=== PATIENT | male | born 1985 | race Caucasian/White ===

== ENCOUNTER 2016-08-04 05:54 | Emergency (ER) | payer BC, OTHER ==
[2016-08-04] MEDS ORDERED: DEXAMETHASONE SOD PHOS INJ 10 MG/1 ML VIAL IM ONE (06:28)
[2016-08-04] MEDS ORDERED: AMOXICILLIN TRIHYDRATE 500 MG CAPSULE PO ONE (06:28)
--- NOTE | 2016-08-04 06:29 | ER Document Report ---
ED General - General Chief Complaint: Sore Throat Stated Complaint: SORE THROAT Mode of Arrival: Ambulatory Information source: Patient Notes: 30-year-old male presents with complaints of tonsillar edema or sores throat fevers body aches of one-week duration. Patient noted to have exudates by urgent care tested negative for strep was given azithromycin and notes no improvement of symptoms TRAVEL OUTSIDE OF THE [place] IN LAST 30 DAYS: No - HPI Onset: Last week Onset/Duration: Persistent Quality of pain: Achy Severity: Mild Pain Level: 1 Associated symptoms: Body/muscle aches, Fever, Sore throat Exacerbated by: Denies Relieved by: Denies Similar symptoms previously: Yes Recently seen / treated by doctor: Yes - Related Data Allergies/Adverse Reactions: Cephalosporins Allergy (Verified 10/28/14 11:27) Penicillins Allergy (Verified 10/28/14 11:27) Past Medical History - Social History Smoking Status: Never Smoker Cigarette use (# per day): No Chew tobacco use (# tins/day): No Smoking Education Provided: No Frequency of alcohol use: Rare Drug Abuse: None Family History: None Patient has suicidal ideation: No Patient has homicidal ideation: No Renal/ Medical History: Denies: Hx Peritoneal Dialysis Past Surgical History: Reports: Hx Appendectomy - Immunizations Hx Diphtheria, Pertussis, Tetanus Vaccination: Yes Review of Systems - Review of Systems Notes: REVIEW OF SYSTEMS: CONSTITUTIONAL : Admits to fevers EENT: Admits to sore throat CARDIOVASCULAR: Denies chest pain. Denies palpitations or racing or irregular heart beat. Denies ankle edema. RESPIRATORY: Denies cough, cold, or chest congestion. Denies shortness of breath, difficulty breathing, or wheezing. GASTROINTESTINAL: Denies abdominal pain or distention. Denies nausea, vomiting , or diarrhea. Denies blood in vomitus, stools, or per rectum. Denies black, tarry stools. Denies constipation. GENITOURINARY: Denies difficulty urinating, painful urination, burning, frequency, blood in urine, or discharge. MUSCULOSKELETAL admits to body aches SKIN: Denies rash, lesions or sores. HEMATOLOGIC : Denies easy bruising or bleeding. LYMPHATIC: Denies swollen, enlarged glands. NEUROLOGICAL: Denies confusion or altered mental status. Denies passing out or loss of consciousness. Denies dizziness or lightheadedness. Denies headache. Denies weakness or paralysis or loss of use of either side. Denies problems with gait or speech. Denies sensory loss, numbness, or tingling. Denies seizures. PSYCHIATRIC: Denies anxiety or stress. Denies depression, suicidal ideation, or homicidal ideation. ALL OTHER SYSTEMS REVIEWED AND NEGATIVE. Dictation was performed using [employer] voice recognition software PHYSICAL EXAMINATION: GENERAL: Well-appearing, well-nourished and in no acute distress. HEAD: Atraumatic, normocephalic. EYES: Pupils equal round and reactive to light, extraocular movements intact, sclera anicteric, conjunctiva are normal. ENT: Bilateral tonsillar edema +2 with exudates uvula midline airway patent NECK: Normal range of motion, supple without lymphadenopathy LUNGS: Breath sounds clear to auscultation bilaterally and equal. No wheezes rales or rhonchi. HEART: Tachycardic on arrival ABDOMEN: Soft, nontender, nondistended abdomen. No guarding, no rebound. No masses appreciated. Musculoskeletal: Normal range of motion, no pitting or edema. No cyanosis. NEUROLOGICAL: Cranial nerves grossly intact. Normal speech, normal gait. Normal sensory, motor exams PSYCH: Normal mood, normal affect. SKIN: Warm, Dry, normal turgor, no rashes or lesions noted. Physical Exam - Vital signs Vitals: Temp Pulse Resp BP Pulse Ox 98.9 F 120 H 17 137/83 H 96 08/04/16 05:58 08/04/16 05:58 08/04/16 05:58 08/04/16 05:58 08/04/16 05:58 Course - Re-evaluation Re-evalutation: 08/04/16 06:28 Bilateral pustular exudates noted with edema +2, patient is already on azithromycin which has not improved symptoms, I will do to try amoxicillin, patient is agreeable to this however I will give first dose here since he has had hives with penicillin when he was a child 08/04/16 06:49 08/04/16 07:21 Patient strep test was negative I expect him specificity and sensitivity of this test, given that he was exudates I will treat him again as strep, he has had mono in the past, has no one-sided enlargement. Therefore I believe the patient is stable for discharge. Patient had no allergic reaction to amoxicillin and will be taken off his allergy list After performing a Medical Screening Examination, I estimate there is LOW risk for ACUTE CORONARY SYNDROME, RESPIRATORY FAILURE, SEPSIS OR MENINGITIS, thus I consider the discharge disposition reasonable. The patient and I have discussed the diagnosis and risks, and we agree with discharging home with close follow- up. We also discussed returning to the Emergency Department immediately if new or worsening symptoms occur. We have discussed the symptoms which are most concerning (e.g., changing or worsening pain, trouble swallowing or breathing, neck stiffness, fever) that necessitate immediate return. - Vital Signs Vital signs: Temp Pulse Resp BP Pulse Ox 98.9 F 120 H 17 137/83 H 96 08/04/16 05:58 08/04/16 05:58 08/04/16 05:58 08/04/16 05:58 08/04/16 05:58 Discharge - Discharge Clinical Impression: Exudative pharyngitis, Body aches Condition: Stable Disposition: HOME, SELF-CARE Instructions: Sore Throat ([facility]) Additional Instructions: Follow up with your physician tomorrow for further care or return to the ED IMMEDIATELY if symptoms worsen or new concerns occur Prescriptions: Amoxicillin 500 mg PO BID #20 capsule Prednisone [Deltasone 20 mg Tablet] 3 tab PO DAILY 5 Days Forms: Return to Work
[2016-08-04 07:43] VITALS: BP 141/83
[2016-08-04] MEDS ORDERED: ACETAMINOPHEN 325 MG TABLET PO ONE ×2 (07:43→07:46)
== END 2016-08-04 07:48 | disposition home or self-care (01) ==
LOC: ER 05:54
DX: J02.9 Acute pharyngitis, unspecified (principal); M79.1 Myalgia; R50.9 Fever, unspecified; R00.0 Tachycardia, unspecified; Z88.1 Allergy status to other antibiotic agents
CPT/HCPCS: 99283; 96372; 87070; 87880; 87077; J1100

== ENCOUNTER 2018-03-19 19:23 | Emergency (ER) | payer OTHER ==
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
[2018-03-19] MEDS ORDERED: ONDANSETRON 4 MG TAB.RAPDIS PO ONE (20:12)
[2018-03-19] MEDS ORDERED: ACETAMINOPHEN 325 MG TABLET PO ONE (20:12)
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
[2018-03-19 23:37] VITALS: BP 130/80
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
== END 2018-03-19 23:34 | disposition home or self-care (01) ==
LOC: ER 19:23
DX: S06.0X0A Concussion without loss of consciousness, initial encounter (principal); S00.03XA Contusion of scalp, initial encounter; M54.6 Pain in thoracic spine; R51 Headache; V69.00XA Driver of heavy transport vehicle injured in collision with unspecified motor vehicles in nontraffic accident, initial encounter; Z88.1 Allergy status to other antibiotic agents; Z88.0 Allergy status to penicillin
CPT/HCPCS: 99284; 71046; 76705; 70450; 72125; S0119

== ENCOUNTER 2019-09-17 19:04 | Emergency (ER) | payer OTHER ==
[2019-09-17 19:37] LABS: ABSOLUTE BASOPHILS # (AUTO) 0.1 10^3/uL (0.0-0.2); ABSOLUTE EOSINOPHILS # (AUTO) 0.2 10^3/uL (0.0-0.6); ABSOLUTE LYMPHOCYTES (AUTO) 2.8 10^3/uL (0.5-4.7); ABSOLUTE MONOCYTES (AUTO) 0.7 10^3/uL (0.1-1.4); ABSOLUTE NEUT (AUTO) 3.1 10^3/uL (1.7-8.2); BASOPHILS % (AUTO) 0.9 % (0-2); HEMATOCRIT 52.7 % (37.9-51.0); HEMOGLOBIN 18.5 g/dL (13.5-17.0); LYMPHOCYTES % (AUTO) 40.8 % (13-45); MEAN CORPUSCULAR HEMOGLOBIN 32.5 pg (27.0-33.4); MEAN CORPUSCULAR HGB CONC 35.1 g/dL (32.0-36.0); MEAN CORPUSCULAR VOLUME 93 fl (80-97); MONOCYTES % (AUTO) 9.9 % (3-13); PLATELET COUNT 291 10^3/uL (150-450); RED CELL DISTRIBUTION WIDTH 14.1 % (11.5-14.0); SEGMENTED NEUTROPHILS % (AUTO) 45.4 % (42-78); TOTAL CELLS COUNTED % (AUTO) 100 %; WHITE BLOOD COUNT 6.8 10^3/uL (4.0-10.5)
--- NOTE | 2019-09-17 19:40 | ER Document Report ---
ED General - General Chief Complaint: Arm Problem Stated Complaint: ARM SWELLING Time Seen by Provider: 09/17/19 19:13 Primary Care Provider: BERE MENDOZA MD [Primary Care Provider] - Follow up as needed Mode of Arrival: Ambulatory Information source: Patient Notes: 33-year-old male arrives by POV with chief complaint of acute onset of right forearm pain after his arrived home around 1730. Patient reports he was working out with his triceps and back muscles around 8:00 to 9:00 this morning. He was not doing any curls are trying to increase forearm strength this morning. He has been working out for least 9 years now without any similar symptoms of hematomas or muscular tears. He was sitting in a chair at the time when this occurred. He began to notice swelling in his wrist area to his flexor surface of his right volar forearm around 1730 Patient reports his maternal grandmother used to have DVTs in bilateral legs. 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 He has been seeing his personal doctor over the last year with decreased usage of testosterone; plus he has been vaping for 1 year TRAVEL OUTSIDE OF THE [place] IN LAST 30 DAYS: No - Related Data Allergies/Adverse Reactions: Cephalosporins Allergy (Verified 10/28/14 11:27) Penicillins Allergy (Verified 10/28/14 11:27) Past Medical History - General Information source: Patient - Social History Smoking Status: Never Smoker Cigarette use (# per day): No Chew tobacco use (# tins/day): No Smoking Education Provided: No Frequency of alcohol use: None Drug Abuse: None Lives with: Family Family History: None, Reviewed & Not Pertinent Patient has suicidal ideation: No Patient has homicidal ideation: No Renal/ Medical History: Denies: Hx Peritoneal Dialysis Past Surgical History: Reports: Hx Appendectomy - Immunizations Hx Diphtheria, Pertussis, Tetanus Vaccination: Yes Review of Systems - Review of Systems Constitutional: No symptoms reported EENT: No symptoms reported Cardiovascular: No symptoms reported Respiratory: No symptoms reported Gastrointestinal: No symptoms reported Genitourinary: No symptoms reported Male Genitourinary: No symptoms reported Musculoskeletal: See HPI, Joint swelling, Muscle stiffness, Other - Swelling of right forearm in appearance venous in nature Skin: No symptoms reported Hematologic/Lymphatic: No symptoms reported Neurological/Psychological: No symptoms reported Physical Exam - Vital signs Vitals: Temp Pulse Resp BP Pulse Ox 97.4 F 110 H 20 122/82 97 09/17/19 19:09 09/17/19 19:09 09/17/19 19:09 09/17/19 19:09 09/17/19 19:09 Interpretation: Tachycardic - HEENT Head: Normocephalic Eyes: Normal Conjunctiva: Normal Cornea: Normal Extraocular movements intact: Yes Eyelashes: Normal Pupils: PERRL Sinus: Normal Nasal: Normal Mouth/Lips: Normal Pharynx: Normal Neck: Normal - Respiratory Respiratory status: No respiratory distress Chest status: Nontender Breath sounds: Normal Chest palpation: Normal - Cardiovascular Rhythm: Tachycardia Heart sounds: Normal auscultation Murmur: No Friction rub: No Noe's crunch: No - Abdominal Inspection: Normal Distension: No distension Bowel sounds: Normal Tenderness: Nontender Organomegaly: No organomegaly - Back Back: Normal - Extremities General upper extremity: Tender, Edema, Other - Right forearm from elbow to wrist with volar edema hematoma General lower extremity: Normal inspection - Neurological Neuro grossly intact: Yes Cognition: Normal Orientation: AAOx4 [place] Coma Scale Eye Opening: Spontaneous [place] Coma Scale Verbal: Oriented [place] Coma Scale Motor: Obeys Commands - To be [place] Coma Scale Total: 15 Speech: Normal Cranial nerves: Normal Cerebellar coordination: Normal Motor strength normal: LUE, RUE, LLE, RLE - Psychological Associated symptoms: Normal affect - Skin Skin Temperature: Warm Skin Moisture: Dry Course - Vital Signs Vital signs: Temp Pulse Resp BP Pulse Ox 97.4 F 110 H 20 122/82 97 09/17/19 19:09 09/17/19 19:09 09/17/19 19:09 09/17/19 19:09 09/17/19 19:09 - Laboratory Result Diagrams: 09/17/19 19:22 09/17/19 19:22 Laboratory results interpreted by me: 09/17/19 09/17/19 19:22 19:22 RBC 5.70 H Hgb 18.5 H Hct 52.7 H RDW 14.1 H Creatine Kinase 1104 H Critical Care Note - Critical Care Note Total time excluding time spent on procedures (mins): 90 Comments: Ultrasound of right upper extremity was negative for clots and I suspect this patient has a seroma from his exercise routine of triceps and back today at the gym. He has large biceps that may be constrictive causing a similar symptom. He has positive CPK and this may be guest service representative of a compartment like syndrome. I discussed this case with Dr. Quintana and he will see this patient in his office. Discharge - Discharge Clinical Impression: Elevated CPK, Spontaneous hematoma of forearm, Compartment syndrome of forearm, Tachycardia Condition: Good Disposition: HOME, SELF-CARE Additional Instructions: Call Dr. Quintana cardiac care unit nurse in the morning for appointment he may be able to see you tomorrow. Avoid working out tomorrow and try to keep right arm elevated until seen by Dr. Quintana; return to ER as needed; avoid nonsteroidals for this time. Or any aspirin for this time. Referrals: BERE MENDOZA MD [Primary Care Provider] - Follow up as needed
[2019-09-17 20:02] LABS: ALBUMIN 4.5 g/dL (3.5-5.0); ALKALINE PHOSPHATASE 48 U/L (38-126); ANION GAP 11 (5-19); ASPARTATE AMINO TRANSFERASE 51 U/L (17-59); BILIRUBIN,DIRECT 0.3 mg/dL (0.0-0.4); BILIRUBIN,TOTAL 0.5 mg/dL (0.2-1.3); BLOOD UREA NITROGEN 11 mg/dL (7-20); CALCIUM 9.3 mg/dL (8.4-10.2); CARBON DIOXIDE 25 mmol/L (22-30); CHLORIDE 105 mmol/L (98-107); CREATINE KINASE 1104 U/L (55-170); GLUCOSE 77 mg/dL (75-110); POTASSIUM 4.6 mmol/L (3.6-5.0); TOTAL PROTEIN 7.8 g/dL (6.3-8.2)
[2019-09-17] MEDS ORDERED: DEXAMETHASONE SOD PHOS INJ 10 MG/1 ML VIAL IV ONE (21:15)
--- NOTE | 2019-09-17 21:49 | RADIOLOGY REPORT (SQ) ---
US UPPER EXTREMITY VEINS EXAM DATE: 09/17/2019 7:31 PM CDT HISTORY: Arm pain and swelling. COMPARISON: None. TECHNIQUE: Grayscale, color Doppler, and spectral Doppler images of the right upper extremity were performed. FINDINGS: The internal jugular, subclavian, axillary, brachial, basilic, and cephalic veins are patent and compressible. Normal color Doppler blood flow and augmentation in the aforementioned veins. The distal veins are also patent. There is diffuse subcutaneous edema with a prominent 1.7 x 0.4 cm lymph node in the distal forearm. IMPRESSION: No evidence of deep venous thrombosis in the right upper extremity.
[2019-09-17 21:55] VITALS: BP 141/76
--- NOTE | 2019-09-18 08:34 | EKG REPORT ---
SEVERITY:- ABNORMAL ECG - SINUS TACHYCARDIA PROBABLE LEFT VENTRICULAR HYPERTROPHY BORDERLINE PROLONGED QT INTERVAL : Confirmed by: Ru Brown MD 18-Sep-2019 08:34:03
== END 2019-09-17 21:55 | disposition home or self-care (01) ==
LOC: ER 19:04
DX: T79.A11A Traumatic compartment syndrome of right upper extremity, initial encounter (principal); X58.XXXA Exposure to other specified factors, initial encounter; M79.81 Nontraumatic hematoma of soft tissue; R00.0 Tachycardia, unspecified; R79.89 Other specified abnormal findings of blood chemistry; F17.290 Nicotine dependence, other tobacco product, uncomplicated; Z88.0 Allergy status to penicillin; Z79.899 Other long term (current) drug therapy
CPT/HCPCS: 93005; 99285; 96374; 36415; 82550; 85025; 80053; 93971; 93010; J1100